=== PATIENT | female | born 1980 | race Hispanic/Latino ===

== ENCOUNTER 2020-07-24 15:41 | Emergency (ER) | payer OTHER ==
[~2020-07-24] VITALS: Ht 160 cm; Wt 59.0 kg
[2020-07-24] MEDS ORDERED: CEPHALEXIN500 M1 PO (17:52)
[2020-07-24] MEDS ORDERED: HYDROCODON-ACE1 EA10 PO (17:52)
== END 2020-07-24 18:35 | disposition home or self-care (01) ==
LOC: ED 15:41
DX: S62.635B Displaced fracture of distal phalanx of left ring finger, initial encounter for open fracture (principal); W23.0XXA Caught, crushed, jammed, or pinched between moving objects, initial encounter; Z23 Encounter for immunization
CPT/HCPCS: 12002; 73130; 90471; 90715; 99283-25